=== PATIENT | female | born 1965 | race Caucasian/White ===

== ENCOUNTER 2023-05-15 15:01 | Outpatient (CLI) | payer BC | END 2023-05-15 15:02 | disposition home or self-care (01) | LOC: CSHMRI 15:01 | PROVIDERS: ATTEND Surgery | DX: M47.26 Other spondylosis with radiculopathy, lumbar region (principal); Z98.890 Other specified postprocedural states | CPT/HCPCS: 72148 ==

== ENCOUNTER 2023-10-13 09:42 | Outpatient (CLI) | payer BC | END 2023-10-13 09:43 | disposition home or self-care (01) | LOC: CSHCT 09:42 | PROVIDERS: ATTEND Surgery | DX: M96.1 Postlaminectomy syndrome, not elsewhere classified (principal); Z98.890 Other specified postprocedural states; M47.26 Other spondylosis with radiculopathy, lumbar region | CPT/HCPCS: 72131 ==